=== PATIENT | female | born 1950 | race Caucasian/White ===

== ENCOUNTER 2020-01-17 07:37 | Outpatient (CLI) | payer OTHER, SELFPAY ==
--- NOTE | ~2020-01-17 | XR_ITS ---
XR hand RT min 3V DATE: 01/17/2020 08:09 INDICATION: Osteoarthritis TECHNIQUE: 3 views COMPARISON: None FINDINGS: There is osteoarthritis at the triscaphe and first carpometacarpal joints, first metacarpop halangeal and multiple interphalangeal joints, particularly prominent at the distal interphalangeal j oint of the fifth digit. Moderate osteopenia. No fracture or dislocation, periosteal reaction or bone destruction is detected. IMPRESSION: Polyarticular osteoarthritis Reviewed, dictated and finalized at location B. TICAL NURSE
--- NOTE | ~2020-01-17 | XR_ITS ---
XR hand LT min 3V DATE: 01/17/2020 08:09 INDICATION: Osteoarthritis TECHNIQUE: 3 views COMPARISON: None FINDINGS: Osteopenia. There is narrowing at the triscaphe joint. There is mild osteoarthritis at the first carpometacarpal joint. There is osteoarthritis at numerous interphalangeal joints, particularly prominent periarticul ar spurring of the distal interphalangeal joints of the second and third and fifth digits. No erosive change is evident. No fracture, dislocation, periosteal reaction or bone destruction. IMPRESSION: Polyarticular osteoarthritis Reviewed, dictated and finalized at location B. 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
--- NOTE | ~2020-01-17 | XR_ITS ---
XR foot LT standing 2V DATE: 01/17/2020 08:09 INDICATION: Osteoarthritis TECHNIQUE: Standing AP and lateral views COMPARISON: None FINDINGS: There is mild osteophyte is at the first metatarsophalangeal joint. There is osteoarthritis at multiple interphalangeal joints. There is prominent plantar and mild posterior calcaneal enthesopathy. No fracture or dislocation, periosteal reaction or bone destruction is detected. IMPRESSION: Plantar and posterior calcaneal enthesopathy Polyarticular osteoarthritis Reviewed, dictated and finalized at location B. RSONIC ENGINEER
--- NOTE | ~2020-01-17 | XR_ITS ---
XR foot RT standing 2V DATE: 01/17/2020 08:09 INDICATION: Osteoarthritis TECHNIQUE: Standing AP and lateral views COMPARISON: None FINDINGS: There is prominent plantar and mild to moderate posterior calcaneal enthesopathy. No fracture or dislocation, periosteal reaction or bone destruction. There is osteoarthritis at multiple interphalangeal joints. No erosive change. IMPRESSION: Plantar and posterior calcaneal enthesopathy Osteoarthritis at multiple interphalangeal joints Reviewed, dictated and finalized at location B. E PROJECTIONIST
[2020-01-17 09:18] LABS: Basophils Absolute Auto 0.1 K/mm3 (0.0-0.1); Basophils Percent Auto 0.9 % (0.2-1.2); Eosinophils Absolute Auto 0.3 K/mm3 (0-0.3); Eosinophils Percent Auto 3.5 % (0-4.4); Hematocrit 35.8 % (37.0-47.0); Hemoglobin 10.4 g/dL (12.0-15.0); Immature Granulocyte Absolute 0.02 K/mm3 (0.00-0.031); Immature Granulocyte Percent A 0.3 % (0-0.5); Lymphocytes Percent Auto 28.8 % (18.3-44.2); Mean Corpuscular HGB Conc 29.1 g/dl (32-36); Mean Corpuscular Hemoglobin 23.9 pg (26-34); Mean Corpuscular Volume 82.1 fl (80-100); Mean Platelet Volume 10.7 fl (7.4-10.4); Monocytes Absolute Auto 0.4 K/mm3 (0.1-0.6); Monocytes Percent Auto 5.3 % (2.6-8.5); Neutrophils Absolute Auto 4.9 K/mm3 (1.3-6.7); Neutrophils Percent Auto 61.2 % (45.5-73.1); Platelet Count Result 225 k/mm3 (150-375); Red Blood Count 4.36 M/mm3 (4.2-5.4); Red Cell Distribution Width 16.1 % (11.5-14.5)
[2020-01-17 09:32] LABS: Anisocytosis 1+ (NORMAL); Platelet Estimate Adequate (Adequate)
[2020-01-17 09:34] LABS: Alanine Aminotransferase 21 U/L (4-35); Alkaline Phosphatase 108 U/L (38-126); Aspartate Amino Transferase 21 U/L (14-36); Bilirubin,Total 0.5 mg/dL (0.2-1.3); Blood Urea Nitrogen 13 mg/dL (7-17); Calcium 9.1 mg/dL (8.4-10.2); Carbon Dioxide 27 mmol/L (22-30); Chloride 100 mmol/L (98-107); Estimated Glomerular Filt Rate > 60; Glucose 112 mg/dL (65-105); Potassium 4.2 mmol/L (3.4-5.0); Sodium 142 mmol/L (137-145)
[2020-01-17 09:55] LABS: Erythrocyte Sedimentation Rate 51 mm/hr (0-20)
[2020-01-17 09:57] LABS: Rheumatoid Factor < 8.6 IU/ML (<12)
[2020-01-21 17:51] LABS: Anti Cyclic Citrullinated Pept <16 Units (<20)
[2020-01-21 21:46] LABS: Anti Nuclear Antibody Titer 1:40 (Negative)
== END 2020-01-17 07:38 | disposition home or self-care (01) ==
PROVIDERS: PCP Family Medicine; Visit Provider Internal Medicine
DX: M77.31 Calcaneal spur, right foot (principal); M77.32 Calcaneal spur, left foot; M19.072 Primary osteoarthritis, left ankle and foot; M19.071 Primary osteoarthritis, right ankle and foot; M19.041 Primary osteoarthritis, right hand; M19.042 Primary osteoarthritis, left hand
CPT/HCPCS: 36415; 73130; 73620; 80053; 85025; 85652; 86038; 86039; 86200; 86430

== ENCOUNTER 2025-08-26 00:31 | Day surgery (SDC) | payer OTHER, SELFPAY ==
[2025-08-09 15:01] VITALS: BMI 44.4
--- OUTSIDE RECORDS SUMMARY | 2025-08-26 00:34 | XMS_ITS | Data Portability ---
Author Organization [place] [facility] [employer], Main Office Address [address] [place] [address] Care Team Providers Care Job Development Specialist Name Role Phone GAIL GEORGE Primary Care Provider GAIL GEORGE Referring Provider [phone] Assessment Encounter Date Assessment Date Assessment LastModified by Organization Details LastModified Time 02/07/2023 02/07/2023 72-year-old patient presents today for left knee recheck after physical therapy. She states that her knee feels much better and has minimal pain. She has two more sessions of PT. She is still taking the meloxicam. She states she has been learning the exercises and plans to continue to do them at home after her PT sessions are done. Physical exam: Non antalgic gait. Full ROM without pain, some crepitus. No pain with deep flexion. Negative Misty's. At this time Shannan would like to follow up as needed. She states that she will call if she develops any new symptoms or needs a refill on her meloxicam. [email or web address] Not available 02/07/2023 10:13:28 Plan of Treatment Reminders Order Date Submit Date Provider Last Modified By Organization Details Last Modified Time Details Appointments None record ed. Lab None record ed. Referral None record ed. Procedures None record ed. Surgeries None record ed. Imaging None record ed. Medication Orders None record ed. Patient TargetsNo targets recorded. Patient InstructionsNo instructions recorded. Reason for Referral None Reported. Results Created Date Observation Date Name Description Value Unit Range Abnormal Flag Note LastModifiedBy Organization Detail LastModifiedTime 04/01/20 22 04/01/2022 HEMOG LOBIN A1C HA1C 7.2 % 4.0-6. 0 high Diabe anthony Radha jerome Crite kj: <5.7% Consi stent with absen ce of diabe anthony 5.7-6 .4% Consi stent with incre ased risk for diabe anthony (pred iabet es) >OR=6 .5% Consi stent with diabe anthony REFER ENCE: Diabe anthony Care 2016, 39(Prado ppl.1 ):s13 -s22 Not Available [facility] (Lab) [address] [place], [address], 04/01/2022 21:10:35 04/01/20 22 04/01/2022 LIPID PANEL cholesterol 147 mg/dL 140-19 9 NIH ANDREAS NSUS RECOM MENDA TION FOR JAZLYN STERO L: ADULT CHILD LOW RISK: <200 <170 BORDE RLINE : <200- 239 ----- HIGH RISK: >240 >200 Not Available [facility] (Lab) [address] [place], [address], 04/01/2022 13:40:01 04/01/20 22 04/01/2022 LIPID PANEL triglyceride s 173 mg/dL 0-150 high NIH ANDREAS NSUS REPOR T RECOM MENDA TION FOR TRIGL YCERI AMIRA: ADULT CHILD LOW RISK: <150 ----- BODER LINE: 150-1 99 ----- HIGH RISK: >200 ----- Not Available [facility] (Lab) [address] [place], [address], 04/01/2022 13:40:01 04/01/20 22 04/01/2022 LIPID PANEL HDL cholesterol 66 mg/dL 40- Not Available [facility] (Lab) [address] [place], [address], 04/01/2022 13:40:01 04/01/20 22 04/01/2022 LIPID PANEL LDL cholesterol, calculated 46 mg/dL 0-130 NIH ANDREAS NSUS REPOR T RECOM MENDA TIONS FOR LDL: ADULT CHILD LOW RISK <130 <110 (OPTI MAL LDL) <100 ----- BORDE RLINE : 130-1 59 ----- HIGH RISK: >160 >130 A TRIGL YCERI DE RESUL T >400 INVAL IDATE S THE CALCU LATIO N FOR LDL FRACT IONAT ION - THE LDL RESUL T WILL NOT BE REPOR ROD. Not Available [facility] (Lab) [address] [place], [address], 04/01/2022 13:40:01 04/01/20 22 04/01/2022 COMPR EHENS MAI METAB OLIC PANEL sodium 142 mmol/ L 137-14 5 Not Available [facility] (Lab) [address] [place], [address], 04/01/2022 13:39:57 04/01/20 22 04/01/2022 COMPR EHENS MAI METAB OLIC PANEL potassium 4.9 mmol/ L 3.5-5. 1 Not Available [facility] (Lab) [address] [place], [address], 04/01/2022 13:39:57 04/01/20 22 04/01/2022 COMPR EHENS MAI METAB OLIC PANEL chloride 108 mmol/ L 98-107 high Not Available [facility] (Lab) [address] [place], [address], 04/01/2022 13:39:57 04/01/20 22 04/01/2022 COMPR EHENS MAI METAB OLIC PANEL carbon dioxide 26 mmol/ L 22-30 Not Available [facility] (Lab) [address] [place], [address], 04/01/2022 13:39:57 04/01/20 22 04/01/2022 COMPR EHENS MAI METAB OLIC PANEL anion gap 12.9 mmol/ L 14-22 low Not Available [facility] (Lab) [address] [place], [address], 04/01/2022 13:39:57 04/01/20 22 04/01/2022 COMPR EHENS MAI METAB OLIC PANEL glucose 115 mg/dL 70-99 high Not Available [facility] (Lab) [address] [place], [address], 04/01/2022 13:39:57 04/01/20 22 04/01/2022 COMPR EHENS MAI METAB OLIC PANEL BUN 14 mg/dL 8-19 Not Available [facility] (Lab) [address] [place], [address], 04/01/2022 13:39:57 04/01/20 22 04/01/2022 COMPR EHENS MAI METAB OLIC PANEL creatinine 0.83 mg/dL 0.66-1 .25 Not Available [facility] (Lab) [address] [place], [address], 04/01/2022 13:39:57 04/01/20 22 04/01/2022 COMPR EHENS MAI METAB OLIC PANEL GFR >60 Refer ence Range : [place] ge GFR Healt hy Adult : >60 mL/mi n/1.7 3 m2 Chron ic Kidne y Disea se: 15-60 mL/mi n/1.7 3 m2 Kidne y Failu re: <15/m L/min /1.73 m2 www.n iddk. nih.g ov The MDRD study equat ion has not been valid ated in child olga <18 years of age; pregn ant women ; the elder ly >85 years of age; or in some racia l or ethni c subgr oups, such as Hisaz nics. Outsi de the valid ated bethany eters , estim ated GFR is less accur ate, requi ring clini cary judgm ent on a case- by-ca se basis . Clini cary inter preta tion for other races and ages must be made by the clini consuelo. The MDRD study equat ion has not been valid ated for the evalu ation of serum creat inine relat ed to nutri enrike l statu s or medic ation usage . For perso ns <18 years of age, a pedia tric GFR calcu lator is avail able on the NKF websi te: https ://marquis irwin.lita friend.o alberta/pr ofess ional s/kdo qi/gf r_cal culat or Not Available [facility] (Lab) [address] [place], [address], 04/01/2022 13:39:57 04/01/20 22 04/01/2022 COMPR EHENS MAI METAB OLIC PANEL alkaline phosphatase 113 U/L 38-126 Not Available [facility] (Lab) [address] [place], [address], 04/01/2022 13:39:57 04/01/20 22 04/01/2022 COMPR EHENS MAI METAB OLIC PANEL alanine aminotransfe rase 26 U/L 0-35 Not Available [facility] (Lab) [address] [place], [address], 04/01/2022 13:39:57 04/01/20 22 04/01/2022 COMPR EHENS MAI METAB OLIC PANEL aspartate aminotransfe rase 27 U/L 15-37 Not Available [facility] (Lab) [address] [place], [address], 04/01/2022 13:39:57 04/01/20 22 04/01/2022 COMPR EHENS MAI METAB OLIC PANEL bilirubin, total 0.60 mg/dL 0.20-1 .30 Not Available [facility] (Lab) [address] [place], [address], 04/01/2022 13:39:57 04/01/20 22 04/01/2022 COMPR EHENS MAI METAB OLIC PANEL calcium 9.2 mg/dL 8.4-10 .2 Not Available [facility] (Lab) [address] [place], [address], 04/01/2022 13:39:57 04/01/20 22 04/01/2022 COMPR EHENS MAI METAB OLIC PANEL total protein 7.0 g/dL 6.3-8. 2 Not Available [facility] (Lab) [address] [place], [address], 04/01/2022 13:39:57 04/01/20 22 04/01/2022 COMPR EHENS MAI METAB OLIC PANEL albumin 4.0 g/dL 3.0-4. 4 Not Available [facility] (Lab) [address] [place], [address], 04/01/2022 13:39:57 04/01/20 22 04/01/2022 COMPR EHENS MAI METAB OLIC PANEL globulin 3.0 g/dL 2.6-4. 2 Not Available [facility] (Lab) [address] [place], [address], 04/01/2022 13:39:57 04/01/20 22 04/01/2022 COMPR EHENS MAI METAB OLIC PANEL A/G ratio 1.3 ratio 1.0-2. 0 Not Available [facility] (Lab) [address] [place], [address], 04/01/2022 13:39:57 04/01/20 22 04/01/2022 MICRO ALBUM IN RANDO M URINE microalbumin , urine <6.0 mg/L 0.0-16 .6 Not Available [facility] (Lab) [address] [place], [address], 04/01/2022 13:13:19 04/19/20 22 04/19/2022 XR, hand No observ ation record ed. [id number] [facility] Add On Lab Orders [address] [place], [address], 01/26/2023 18:54:39 04/22/20 22 XR, hand No observ ation record ed. [id number] Not Available 01/26/2023 18:54:39 05/06/20 22 XR, hand No observ ation record ed. [id number] [facility] [address], [place], [address], 01/26/2023 18:54:39 05/20/20 22 XR, hand, 3 or more view No observ ation record ed. [id number] [facility] [address], [place], [address], 01/26/2023 18:54:39 05/24/20 22 05/24/2022 imagi ng/di agnos tic resul t No observ ation record ed. [id number] [facility] On Lab Orders [address] [place], [address], 01/26/2023 18:54:39 06/18/20 22 06/15/2022 MAMMO , scree justus, digit al, bilat eral No observ ation record ed. [id number], [place], [address], 01/26/2023 18:54:39 12/30/19 23 12/30/2022 XR, knee, 3 view No observ ation record ed. [id number] [facility] Orders [address] [place], [address], 01/26/2023 18:54:39 12/31/19 23 XR, knee, 3 view No observ ation record ed. [id number] Not Available 01/26/2023 18:54:39 08/23/20 23 08/17/2023 MAMMO , scree justus, digit al, bilat eral No observ ation record ed. [address], [place], [address], 08/25/2023 09:43:19 Result Notes None recorded. Problems Name Problem SNOMED Code Status Onset Date Resolution Date Notes Provider Name and Address Organization Details Recorded Time Arthritis 8431923 Active 2016 Not Available [facility] 4 19:22:09 Hypertensi ve disorder 07935065 Active 2016 Not Available [facility] 4 19:22:09 Hyperlipid emia 65457747 Active 2016 Not Available [facility] 4 19:22:09 Diabetes mellitus 87632230 Active 2016 Not Available [facility] 4 19:22:09 Pain of left hand 5579365220722 03 Active 2021 Not Available [facility] 4 19:22:09 Closed fracture of distal phalanx of finger 52991516 Active 2021 Not Available [facility] 4 19:22:09 Fracture of distal phalanx of finger 93843431 Active 2021 Not Available [facility] 4 19:22:09 Problem Notes None recorded. Procedures Surgical History Date Name Laterality Status Provider Name and Address Organization Details Recorded Time Cholecystectomy completed Not Available [facility] 01/26/2023 18:52:37 Carpal tunnel completed Not Available [facility] 01/26/2023 18:52:37 Tonsillectomy completed Not Available [facility] 01/26/2023 18:52:37 Imaging Results None recorded. Procedure Notes None recorded. Medical Equipment None Reported. Medications Name Sig Start Date Stop Date Status Note LastModified by Organization Details LastModified Time atorvastati n 40 mg tablet TAKE 1 TABLET BY MOUTH EVERY DAY active Not Available Not Available No t Available metformin 500 mg tablet TAKE 1 TABLET BY MOUTH TWICE A DAY active Not Available Not Available No t Available azithromyci n 250 mg tablet Take 2 TABLET EVERY DAY by oral route for 1 day. Than 1 tablet for 4 days 11/13 completed Not Available Not Available Not Available ofloxacin 0.3 % eye drops active Not Available Not Available Not Available hydrocodone 5 mg-acetamin ophen 325 mg tablet 01/05 completed Not Available Not Available Not Available meloxicam 15 mg tablet TAKE 1 TABLET BY MOUTH EVERY DAY 2024 active Not Available Not Available Not Avai lable lisinopril 20 mg tablet 11/13 completed Not Available Not Available Not Available ketorolac 0.5 % eye drops active Not Available Not Available Not Available amoxicillin 875 mg tablet TAKE 1 TABLET BY MOUTH EVERY 12 HOURS UNTIL GONE active Not Available Not Available No t Available prednisolon e acetate 1 % eye drops,suspe nsion active Not Available Not Available Not Available benzonatate 100 mg capsule 05/05 completed Not Available Not Available Not Available ferrous sulfate 325 mg (65 mg iron) tablet TAKE 1 TABLET BY MOUTH EVERY DAY active Not Available Not Available No t Available dexamethaso ne 4 mg tablet TAKE 2 TABS BY MOUTH ON DAY OF SURGERY, 2 TABS ON DAY AFTER SURGERY AND 1 TAB 2ND DAY AFTER SURGERY active Not Available Not Available No t Available glimepiride 4 mg tablet TAKE TWO TABLETS BY MOUTH ONCE DAILY 10/26 completed Not Available Not Available Not Available furosemide 20 mg tablet TAKE 1 TABLET BY MOUTH EVERY DAY active Not Available Not Available No t Available hydroxychlo roquine 200 mg tablet TAKE 1 TABLET BY MOUTH TWICE A DAY active Not Available Not Available No t Available ibuprofen 600 mg tablet TAKE 1 TABLET BY MOUTH EVERY 6 HOURS NEEDED FOR PAIN active Not Available Not Available No t Available pioglitazon e 30 mg tablet active Not Available Not Available Not Available losartan 100 mg tablet TAKE 1 TABLET BY MOUTH EVERY DAY active Not Available Not Available No t Available Vitamin D3 25 mcg (1,000 unit) tablet Take 2 tablets every day by oral route. 2016 active Not Available Not Available Not Avai lable Aleve 2016 active Not Available Not Available Not Avai lable Tylenol-Cod eine #3 01/05 completed Not Available Not Available Not Available Zantac 04/18 completed Not Available Not Available Not Available Calcium 600 + D(3) 2016 active Not Available Not Available Not Avai lable diclofenac 1 % topical gel 01/05 completed Not Available Not Available Not Available Trulicity 1.5 mg/0.5 mL subcutaneou s pen injector INJECT 0.5MLS UNDER THE SKIN ONCE WEEKLY active Not Available Not Available No t Available ID NOW COVID-19 Test Kit TEST DIRECTED TODAY 01/05 completed Not Available Not Available Not Available Trulicity 3 mg/0.5 mL subcutaneou s pen injector INJECT 3MG UNDER THE SKIN EVERY WEEK 10/17 completed Not Available Not Available Not Available Trulicity 4.5 mg/0.5 mL subcutaneou s pen injector INJECT 4.5 MG UNDER THE SKIN ONCE EVERY WEEK 01/05 completed Not Available Not Available Not Available Mounjaro 7.5 mg/0.5 mL subcutaneou s pen injector active Not Available Not Available Not Available Vitals Date Recorded Body mass index (BMI) Body height Body weight Provider Name and Address Organization Details Last Updated DateTime 01/05/2023 45.7 kg/m2 154.94 cm 275946.35 g Not Available [facility] 01/26/2023 18:53:11 Date Recorded Body height Body mass index (BMI) Body weight Provider Name and Address Organization Details Last Updated DateTime 02/07/2023 154.94 cm 45.5 kg/m2 747590.76 g Eula [facility] 02/07/2023 09:54:15 Date Recorded Body mass index (BMI) Body height Pain severity - 0-10 verbal numeric rating [Score] - Reported Body weight Provider Name and Address Organization Details Last Updated DateTime 04/22/2022 46.9 kg/m2 154.94 cm 0 954963.91 g Not Available [facility] 01/26/2023 18:53:11 Date Recorded Body mass index (BMI) Body height Body weight Provider Name and Address Organization Details Last Updated DateTime 05/06/2022 46.7 kg/m2 154.94 cm 159126.32 g Not Available [facility] 01/26/2023 18:53:11 Date Recorded Body mass index (BMI) Body height Body weight Provider Name and Address Organization Details Last Updated DateTime 05/20/2022 46.7 kg/m2 154.94 cm 802736.32 g Not Available [facility] 01/26/2023 18:53:11 Social History Question Answer Notes LastModified by Organizat ion Details LastModified Time Tobacco Smoking Status Never Smoker Not Available [facility] 01/26/2023 18:52:35 In The 14 Days Before Symptom Onset, Have You Had Close Contact With A Laboratory-confirm ed COVID-19 While That Case Was Ill? No [id number] Information not available 01/26/2023 In The 14 Days Before Symptom Onset, Have You Had Close Contact With A Person Who Is Under Investigation For COVID-19 While That Person Was Ill? No [id number] Information not available 01/26/2023 Sex: Unknown Functional Status Question Answer Note LastModified by Organizat ion Details LastModified Time What is your level of alcohol consumption? None [id number] Information not available 01/26/2023 Mental Status None recorded. Family History Relationship Description Onset Age of this Age Resolved Age Notes LastModified by Organization Details LastModified Time Maternal Grandmother Myocardial infarction [id number] Not available 01/26/2023 18:52:38 Mother Myocardial infarction [id number] Not available 01/26/2023 18:52:38 Mother Hypertensive disorder [id number] Not available 01/26/2023 18:52:38 Mother Heart disease [id number] Not available 01/26/2023 18:52:38 Father Diabetes mellitus [id number].104 [id number] Not available 01/26/2023 18:52:38 Father Family history of malignant neoplasm [id number] Not available 01/26/2023 18:52:38 Father Heart disease [id number] Not available 01/26/2023 18:52:38 Sister Diabetes mellitus [id number] Not available 01/26/2023 18:52:38 Brother Diabetes mellitus [id number] Not available 01/26/2023 18:52:38 Brother Diabetes mellitus [id number] Not available 01/26/2023 18:52:38 Brother Family history of malignant neoplasm [id number] Not available 01/26/2023 18:52:38 Medical History Condition Response BLINDNESS N KIDNEY STONES N MRSA N CARPAL TUNNEL SYNDROME N LUNG DISEASE/DISORDER N HISTORY OF DRUG ABUSE N COPD N RADIATION / CHEMOTHERAPY N SPORTS INJURY N ANKLE PAIN N BLOOD DISEASES N SCHIZOPHRENIA N SHINGLES N SHOULDER PAIN N DEPRESSION (INCLUDING POST ) N BOWEL PROBLEMS N STROKE/TIA N KNEE PAIN N ULCERS N BENIGN PROSTATIC HYPERPLASIA N OBESITY N GERD/NAUSEA N ANEURYSM N URINARY/BLADDER/KIDNEY PROBLEMS N CORONARY ARTERY DISEASE (CAD) N ADDICTION CONCERNS N USE OF BLOOD THINNERS N SKIN PROBLEMS N EMPHYSEMA N MUSCLE,JOINT OR BONE PROBLEMS N DVT N STOMACH ULCERS N BLOOD CLOTS N USE OF NSAIDS N CONCUSSION OR SPINAL TRAUMA N NEUROPATHY N AIDS/HIV N FRACTURES N HYPERTENSION Y ELBOW PAIN N TOURETTE'S N Metal allergy N ANXIETY DISORDER N BLOOD TRANSFUSION N ANEMIA/BLOOD DISORDER N BIPOLAR DISORDER N BRONCHITIS N OSTEOARTHRITIS N TUBERCULOSIS N FOOT PROBLEM N HEART VALVE DISORDERS N ALLERGIES/HAYFEVER N SOFT TISSUE INJURY N INFECTIOUS DISEASE N HEART ARRHYTHMIA N INSOMNIA N HIGH CHOLESTEROL / HYPERLIPIDEMIA N RHEUMATOID ARTHRITIS N EDEMA N CHRONIC PAIN SYNDROME N CAROTID BLOCKAGE N BACK / NECK PROBLEMS N HAVE YOU BEEN HOSPITALIZED OR SEEN IN [facility] IN THE PAST YEAR ? N BURSITIS N HERNIATED DISC N DIALYSIS N FIBROMYALGIA N OSTEOPOROSIS N ARTHRITIS Y NO SIGNIFICANT PAST MEDICAL HISTORY N PERIPHERAL NEUROPATHY N DIABETES, TYPE Y HEARTBURN / REFLUX N HEPATITIS / LIVER DISEASE N GOUT N ALZHEIMER'S DISEASE N SLEEP DISORDER N HERPES N HEADACHES/MIGRAINES N SEIZURES/EPILEPSY N VASCULAR DISEASE N Blood Disorder N HIP PAIN N DIZZINESS N HEAD TRAUMA OR INJURY N HEART DISEASE/HEART PROBLEMS N MULTIPLE SCLEROSIS N CANCER: SPECIFY N CARDIAC ARRHYTHMIA N ANESTHESIA COMPLICATIONS N ATRIAL FIBRILLATION N AUTOIMMUNE DISEASE N Gynecological HistoryNo gynecological history recorded. Obstetrics History GPAL:G 0 P 0 0 0 0 Immunizations Vaccine Type Date Status Note Provider Nam e and Address Organization Details Recorded Time Pneumococcal conjugate PCV 13 5 completed Not Available [facility] 01/16/2024 19:22:10 zoster live 3 completed Not Available [facility] 01/16/2024 19:22:10 Tdap 2 completed Not Available [facility] 01/16/2024 19:22:09 Past Encounters Encounter ID Performer Location Encounter Start Date Encounter Closed Date Diagnosis/Indication Diagnosis SNOMED-CT Code Diagnosis ICD10 Code Diagnosis IMO Codes Diagnosis Note [id number] Gail Oscar MD [facility] [place] [address] [place] [address] 06/11/2021 00:00:00 06/11/2021 22:25:01 [id number] Gail Oscar MD [facility] [place] [address] [place] [address] 09/11/2021 00:00:00 09/11/2021 17:07:32 [id number] Negrito Bauer MD [facility] [address] [facility] [address] [place] [address] 10/26/2021 00:00:00 10/26/2021 17:49:26 [id number] Gail Oscar MD [facility] [place] [address] [facility] [address] 04/01/2022 00:00:00 04/01/2022 19:37:52 [id number] Jm Leonard MD [facility] [address] [place] [address] 04/22/2022 00:00:00 04/22/2022 15:27:41 [id number] Jm Leonard MD [facility] [address] [facility] [address] [place] [address] 05/06/2022 00:00:00 05/06/2022 15:05:01 [id number] Jm Leonard MD [facility] [address] [place] [address] 05/20/2022 00:00:00 05/20/2022 15:59:02 [id number] Jose Barrett MD [facility] [address] [facility] [address] [place] [address] 01/05/2023 00:00:00 01/05/2023 11:20:34 [id number] Miranda Craig NP [facility] [address] [facility] [place] [address] 02/07/2023 09:50:34 02/07/2023 10:12:41 Health Concerns Section Related Observation LastModified by Organization Detai ls LastModified Time None Recorded Concern Status LastModified by Organization Details LastModified Time None Recorded Advance Directives Directive None Recorded Payers Insurance Date Sequence Insurance Name Policy Number Policy Lundberg Covered Member ID Lundberg Member ID Guarantor Name 10/24/2023 1 [facility] [id number] Shannan Cervantes [id number] Shannan Cervantes OBGyn Episode No OBEpisode recorded.
--- OUTSIDE RECORDS SUMMARY | 2025-08-26 00:34 | XMS_ITS | Clinical Summary ---
Author Organization [facility] Address [address] [place] [address] Care Team Providers Care Job Spotter Name Role Phone Jared Thomas MD Primary Care Provider [phone] Source Comments [facility],non-owned Affiliates and Associated Physician Practices is amultiple site organization consisting of ambulatory clinics and hospital sitesin [place], [place], [place] and [place]. This disclosure is being madepursuant to the Care Everywhere program and may not contain all information available regarding this patient. Last updated 18.[facility] Allergies No known active allergies Medications * Be aware that medications may not be up to date on this document. Alwaysverify current medications with the patient. glimepiride (AMARYL) 4 MG tabletIndicati ons:Type 2 Diabetes Mellitus Take 4 mg by mouth 2 times daily. Indications: Type 2 Diabetes Active metFORMIN (GLUCOPHAGE) 500 MG tabletIndicati ons:Type 2 Diabetes Mellitus Take 500 mg by mouth 2 times daily with morning and evening meal. Indications: Type 2 Diabetes Active pioglitazone (ACTOS) 30 MG tablet Take 30 mg by mouth once daily. Active lisinopril (PRINIVIL; ZESTRIL) 20 MG tablet Take 20 mg by mouth once daily. Active atorvastatin (LIPITOR) 40 MG tablet Take 40 mg by mouth at bedtime. Active calcium-vitami n D (CALTRATE PLUS D) 600-200 MG-UNIT tablet Take 1 Tab by mouth 2 times daily. Active acetaminophen- codeine (TYLENOL #3) 300-30 MG tablet Take 1 Tab by mouth every 6 hours as needed for Pain. Active ranitidine (ZANTAC) 75 MG tabletIndicati ons:Gastroesop hageal Reflux Disease Take 75 mg by mouth 2 times daily. Indications: Gastroesophageal Reflux Disease Active Immunizations Immunization Administration Dates Next Due INFLUENZA VACCINE, HIGH-DOSE , QUADR. (FLUZONE HIGH-DOSE QUADRIVALENT; 65Y+), 0.7 ML (HD-IIV4) 09/08/2018 Social History Tobacco Use Types Packs/Day Years Used Date Smoking Tobacco: Never Assessed Comments Unknown Sex and Gender Information Value Date Recorded Sex Assigned at Not on file Legal Sex Female 5:57 AM [employer] Gender Identity Not on file Sexual Orientation Not on file Last Filed Vital Signs Vital Sign Reading Time Taken Comments Blood Pressure - - Pulse - - Temperature - - Respiratory Rate - - Oxygen Saturation - - Inhaled Oxygen Concentration - - Weight 104.8 kg (231 lb) 03/21/2015 10:27 AM CDT Height 154.9 cm (5' 0.98) 03/21/2015 10:27 AM C DT Body Mass Index 43.67 03/21/2015 10:27 AM CDT Plan of Treatment Health Maintenance Due Date Last Done Comments COLOGUARD (AGES 45-75) - COL ON CA SCREENING 1950 COLON MONITORING 1950 COLONOSCOPY - COLON CA SCREENING 1950 CT COLONOGRAPHY - COLON CA SCREENING 1950 Colorectal Cancer Screening 1950 FIT - COLON CA SCREENING 1950 FLEX SIG - COLON CA SCREENING 1950 MAMMOGRAM 1950 HEPATITIS C SCREENING 11/01/1968 DTAP/TDAP/TD VACCINES (1 - Tdap) 1969 PNEUMOCOCCAL VACCINE 50+ (1 of 1 - PCV) 2000 ZOSTER VACCINE (1 of 2) 2000 Respiratory Syncytial Virus (RSV) Vaccine Pt: or over 60 yrs (1 - Risk 60-74 years 1-dose series) 2010 DEPRESSION SCREENING 11/28/2024 COVID-19 VACCINE (1 - 2023-2 5 season) 2025 INFLUENZA VACCINE (#1) 2025 09/08/2018 BONE DENSITY TESTING Completed 03/29/2015, 02/14/2013, 08/07/2009 HEPATITIS B VACCINE Aged Out No longe r eligible based on patient's age to complete this topic HIB VACCINE Aged Out No longer eligi ble based on patient's age to complete this topic HPV VACCINE Aged Out No longer eligi ble based on patient's age to complete this topic MENINGOCOCCAL (Group B) VACCINE SHARED DECISION-MAKING Aged Out No longer eligible based on patient's age to complete this topic MENINGOCOCCAL GROUPS A/C/Y/W VACCINE Aged Out No longer eligible b ased on patient's age to complete this topic Procedures Procedure Name Priority Date/Time Associated Diagnosis Comments DEXA BONE DENSITY 2 SITES Routine 03/29/2015 8:06 AM CDT Disorder of bone and cartilage, unspecified from Last 3 Months or Most Recently Relevant to Health Maintenance Results * DEXA BONE DENSITY 2 SITES (03/29/2015 8:06 AM CDT) Anatomical Region Laterality Modality Mammography 03/29/2015 9:04 AM CDT Addenda Addendum by Isis Mlian MD on 05/06/2015 9:37 AM CDT Correction: The total mean bone mineral density is 0.989 with a T score for the proximal femurs -0.1. Conclusion is unchanged. By mean criteria the patient falls in the normal range. Narrative 03/29/2015 9:05 AM CDT BONE MINERAL DENSITY STUDY INDICATION: Osteoporosis screening. Ovarian failure FINDINGS: The average bone mineral density from L1 to L4 is1.096 g/cm2. The T-score is -0.7 and the Z-score is -0.3. This is an increase of 5.4% since prior study 2008. The average bone mineral density of the totalmean hip is 0.989 g/cm2. The T-score is -2.1 and the Z-score is 0.2. This is a decrease of 8.3% since prior study. ASSESSMENT: Findings consistent with normal total mean bone mineral density. No significant increased fracture risk. WORLD HEALTH ORGANIZATION DEFINITIONS OSTEOPENIA = -1 to -2.5 SD BELOW T SCORE. OSTEOPOROSIS = Less than -2.5 SD BELOW T SCORE Procedure Note Isis Milan MD - 03/29/2015 BONE MINERAL DENSITY STUDY INDICATION: Osteoporosis screening. Ovarian failure FINDINGS: The average bone mineral density from L1 to L4 is1.096 g/cm2. The T-score is -0.7 and the Z-score is -0.3. This is an increase of 5.4% since prior study 2008. The average bone mineral density of the totalmean hip is 0.989 g/cm2. The T-score is -2.1 and the Z-score is 0.2. This is a decrease of 8.3% since prior study. ASSESSMENT: Findings consistent with normal total mean bone mineral density. No significant increased fracture risk. WORLD HEALTH ORGANIZATION DEFINITIONS OSTEOPENIA = -1 to -2.5 SD BELOW T SCORE. OSTEOPOROSIS = Less than -2.5 SD BELOW T SCORE us Jared Thomas MD DEXA ORDERABLES Edited Resu lt - Final from Last 3 Months or Most Recently Relevant to Health Maintenance Insurance AET Care Teams Job Spotter Relationship Specialty Start Date End Date Jared Thomas MD [address] [place] [phone] PCP - General 08/07/09
[2025-08-26 09:21] VITALS: BP 158/69; PULSE 85; RESP 16; TEMP 35.9; O2SAT 99; BMI 44.0
[2025-08-26] MEDS: LACTATED RINGERS 1,000 ML 150 ML IV CONT (09:33)
--- NOTE | 2025-08-26 09:41 | WPDANESEPPF ---
Anes - Initial Pre Proc Eval Procedure: Operation Date: 08/26/25 10:30 Proposed Procedures p Diagnostic Colonoscopy - Ethan Yip MD Date/Time: 08/26/25 09:41 Surgeon: Ethan Yip MD Pre Op Diagnosis: Anemia, unspecified Patient Data Age: 74 Gender: F Height: 1.55 m Weight: 105.7 kg Last Vital Signs Temp 96.7 F L 08/26/25 09:21 Pulse 85 08/26/25 09:21 Resp 16 08/26/25 09:21 BP 158/69 H 08/26/25 09:21 Pulse Ox 99 08/26/25 09:21 O2 Del Method Room Air 08/26/25 09:21 Allergies Allergy/AdvReac Type Severity Reaction Status Date / Time No Known Allergies Allergy Verified 08/26/25 09:19 Home Medications ?Medication ?Instructions ?Recorded ?Confirmed ?Type acetaminophen 300 mg-codeine 30 mg 1 tablet PO Q6H PRN pain 09/28/19 08/12/25 History tablet (Tylenol-Codeine #3) atorvastatin 40 mg tablet 40 mg PO DAILY 09/28/19 08/26/25 History calcium carbonate (Calcium 600) 600 mg PO BID 09/28/19 08/26/25 History cholecalciferol (vitamin D3) 25 2,000 unit PO DAILY 09/28/19 08/26/25 History mcg (1,000 unit) capsule furosemide 20 mg tablet 20 mg PO QAM 09/28/19 08/26/25 History losartan 100 mg tablet 100 mg PO DAILY 09/28/19 08/26/25 History metformin 500 mg tablet 500 mg PO BID 09/28/19 08/26/25 History diclofenac sodium 1 % topical gel 2 gm topical QID #100 grams 10/01/19 08/26/25 Rx (Voltaren) hydroxychloroquine 200 mg tablet See Rx Instructions .Route 05/09/20 08/26/25 Rx .COMPLEX #60 tabs meloxicam 15 mg tablet 15 mg PO DAILY 09/12/24 08/26/25 History ascorbate calcium (vitamin C) 500 500 mg PO DAILY 12/28/24 08/26/25 History mg tablet ferrous sulfate 325 mg (65 mg 325 mg PO DAILY 12/28/24 08/26/25 History iron) tablet tirzepatide 10 mg/0.5 mL 10 mg (0.5 mL) subcut WEEKLY #2 mL 06/24/25 08/12/25 Rx subcutaneous pen injector (Eric) ondansetron 4 mg disintegrating 4 mg PO Q6H PRN nausea and 08/09/25 08/12/25 Rx tablet vomiting #4 tabs Laboratory Tests 08/26/25 09:25 POC Capillary Glucose 124 H mg/dl (65-105) Patient hx anesthesia problems: other (Sometimes takes a while to wake up. ) Family hx anesthesia problems: none Results Review: All pre-operative results and documents have been reviewed as part of the pre-operative evaluation. [facility] Past Medical History Medical History Erosive osteoarthritis of hands, bilateral Bilateral hand pain (~11/2015) Hypertension Diabetes Arthritis Surgical History Surgical History Hx of tonsillectomy Hx of cholecystectomy History of carpal tunnel release Family History Family History Mother Heart disease Father Cancer Rheumatoid arthritis Heart disease Grandparent Acute myocardial infarction Diabetes mellitus Sibling Diabetes mellitus Social History Social History Social History: caffeine: 1 cup daily Coffee Smoking status: Never smoker Alcohol intake: never Substance use: never Substance use type: does not use Do You Feel Safe in your Home?: Yes Lack of Transportation: No Lack of Food: Never True Current Housing: I Have Housing Concerned About Future Housing: No Difficulty Paying Gas/Electric Bills: No Difficulty Paying for Meds: No Currently Unemployed: No Difficulty w/ Childcare or Family Care: No Living arrangements: with family Occupation/Education: occupation Gender identity (if verbalized by the patient): Female Sexual Orientation (if Verbalized by the Patient): Straight or Heterosexual Spiritual care concerns: No Agree to blood products: Yes Anes - Eval Final PreProcedure Day of Procedure 08/26/25 09:41 Patient weight: morbidly obese Lungs: normal air movement Airway: Mallampati scale class II Neurological: alert and oriented Last oral intake: >/= 8 hours ASA classification: III Emergent: no Anesthetic plan: proceed Anesthesia type and monitoring: general GIVS and standard monitoring Results Review: All pre-operative results and documents have been reviewed as part of the pre-operative evaluation. BMI 44, HTN, hyperlipidemia, fsbs 124, pt can walk 1-2 fos, mild dyspnea, no cp. Active taking care of her at home. Informed Consent: The patient's anesthetic plan and its attendant risks and benefits were discussed with the patient/family/POA. Questions were solicited and answers provided to the satisfaction of the patient/family/POA.
--- NOTE | 2025-08-26 09:52 | PM.IMHP ---
H&P: HPI History of Present Illness Date/Time: 08/26/25 09:52 Chief Complaint: Iron deficiency anemia Narrative: the patient has been found to have iron deficiency anemia by her primary care physician, being prescribed iron orally. She is now referred for colonoscopy. Her last colonoscopy was about 10 years ago. There is no family history of colon cancer. Review of Systems Review of Systems: All systems reviewed & are unremarkable except as noted in HPI and below PMFSH Past Medical History Medical History Erosive osteoarthritis of hands, bilateral Bilateral hand pain (~11/2015) Hypertension Diabetes Arthritis Surgical History Surgical History Hx of tonsillectomy Hx of cholecystectomy History of carpal tunnel release Family History Family History Mother Heart disease Father Cancer Rheumatoid arthritis Heart disease Grandparent Acute myocardial infarction Diabetes mellitus Sibling Diabetes mellitus Social History Social History Social History: caffeine: 1 cup daily Coffee Smoking status: Never smoker Alcohol intake: never Substance use: never Substance use type: does not use Do You Feel Safe in your Home?: Yes Lack of Transportation: No Lack of Food: Never True Current Housing: I Have Housing Concerned About Future Housing: No Difficulty Paying Gas/Electric Bills: No Difficulty Paying for Meds: No Currently Unemployed: No Difficulty w/ Childcare or Family Care: No Living arrangements: with family Occupation/Education: occupation Gender identity (if verbalized by the patient): Female Sexual Orientation (if Verbalized by the Patient): Straight or Heterosexual Spiritual care concerns: No Agree to blood products: Yes Meds Home Medications and Allergies Home Medications ?Medication ?Instructions ?Recorded ?Confirmed ?Type acetaminophen 300 mg-codeine 30 mg 1 tablet PO Q6H PRN pain 09/28/19 08/12/25 History tablet (Tylenol-Codeine #3) atorvastatin 40 mg tablet 40 mg PO DAILY 09/28/19 08/26/25 History calcium carbonate (Calcium 600) 600 mg PO BID 09/28/19 08/26/25 History cholecalciferol (vitamin D3) 25 2,000 unit PO DAILY 09/28/19 08/26/25 History mcg (1,000 unit) capsule furosemide 20 mg tablet 20 mg PO QAM 09/28/19 08/26/25 History losartan 100 mg tablet 100 mg PO DAILY 09/28/19 08/26/25 History metformin 500 mg tablet 500 mg PO BID 09/28/19 08/26/25 History diclofenac sodium 1 % topical gel 2 gm topical QID #100 grams 10/01/19 08/26/25 Rx (Voltaren) hydroxychloroquine 200 mg tablet See Rx Instructions .Route 05/09/20 08/26/25 Rx .COMPLEX #60 tabs meloxicam 15 mg tablet 15 mg PO DAILY 09/12/24 08/26/25 History ascorbate calcium (vitamin C) 500 500 mg PO DAILY 12/28/24 08/26/25 History mg tablet ferrous sulfate 325 mg (65 mg 325 mg PO DAILY 12/28/24 08/26/25 History iron) tablet tirzepatide 10 mg/0.5 mL 10 mg (0.5 mL) subcut WEEKLY #2 mL 06/24/25 08/12/25 Rx subcutaneous pen injector (Eric) ondansetron 4 mg disintegrating 4 mg PO Q6H PRN nausea and 08/09/25 08/12/25 Rx tablet vomiting #4 tabs Allergies Allergy/AdvReac Type Severity Reaction Status Date / Time No Known Allergies Allergy Verified 08/26/25 09:19 Vital Signs Vital Signs - 24 hr 08/26/25 09:21 Temperature 96.7 F L Pulse Rate 85 Respiratory Rate 16 Blood Pressure 158/69 H Pulse Oximetry 99 Oxygen Delivery Room Air Exam Const: General: cooperative and healthy appearing Resp: Effort & Inspection: normal respiratory effort and able to speak in complete sentences Auscultation: clear to auscultation bilaterally Cardio: Rate: regular rate Rhythm: regular rhythm GI: Inspection: normal to inspection GI Palp: No No hepatosplenomegaly present Auscultation: normal bowel sounds Rectal Exam: deferred Skin: General skin exam: normal color Psych: Appearance: grossly normal Mental Status: mental status grossly normal Assessment and Plan Assessment and plan (1) Anemia: Qualifiers: Anemia type: iron deficiency Iron deficiency anemia type: unspecified iron deficiency Qualified Code(s): D50.9 - Iron deficiency anemia, unspecified Code(s): D64.9 - Anemia, unspecified Status: Acute Assessment and Plan: The patient is deemed a good candidate for the procedure. Consent signed. Will proceed.
[2025-08-26 10:47] VITALS: BP 173/77; PULSE 84; RESP 22; O2SAT 96
[2025-08-26 10:57] VITALS: BP 132/77; PULSE 95; RESP 19; O2SAT 96
[2025-08-26 11:07] VITALS: BP 179/77; PULSE 84; RESP 19; O2SAT 96
--- NOTE | 2025-08-26 11:09 | SUR.PHASEII ---
notified of patient's blood pressure of 179/77 and stated to not have taken blood pressure medication in 2 days. Patient is asymptomatic. Patient educated to continue medication after discharge and given discharge papers with physicians number to contact if she has any questions or concerns.
== END 2025-08-26 11:23 | disposition home or self-care (01) ==
PROVIDERS: PCP Clinical Nurse Specialist; Referring Provider Internal Medicine; Visit Provider Internal Medicine Gastroenterology
PROC: 0DJD8ZZ Inspection of Lower Intestinal Tract, Via Natural or Artificial Opening Endoscopic (ICD-10-PCS; CPT 45378; principal; 2025-08-26 10:30)
DX: D50.9 Iron deficiency anemia, unspecified (principal); K57.30 Diverticulosis of large intestine without perforation or abscess without bleeding; E78.5 Hyperlipidemia, unspecified; I10 Essential (primary) hypertension; E11.9 Type 2 diabetes mellitus without complications; M15.4 Erosive (osteo)arthritis; E66.01 Morbid (severe) obesity due to excess calories; Z68.41 Body mass index [BMI] 40.0-44.9, adult; Z79.84 Long term (current) use of oral hypoglycemic drugs; Z79.85 Long-term (current) use of injectable non-insulin antidiabetic drugs; Z98.890 Other specified postprocedural states; Z90.49 Acquired absence of other specified parts of digestive tract; Z80.9 Family history of malignant neoplasm, unspecified; Z82.49 Family history of ischemic heart disease and other diseases of the circulatory system
CPT/HCPCS: 45378; 82948; J2003; J2704; J7120